=== PATIENT | female | born 1970 | race Caucasian/White ===

== ENCOUNTER → 2018-02-03 11:52 | Outpatient (REF) | payer MEDICAID, SELFPAY ==
[2018-02-07 01:01] LABS: EDDP-by GC-MS 1260 ng/mL; Methadone Interpretation Positive.; Methadone-by GC-MS 738 ng/mL
[2018-02-07 05:38] LABS: Amphetamine 561 ng/mL (Cutoff: 25); Amphetamines Interpretation Positive.; MDA (Ecstasy Metabolite) Negative ng/mL (Cutoff: 25); MDMA (Ecstasy) Negative ng/mL (Cutoff: 25); Methamphetamine Negative ng/mL (Cutoff: 25); Phentermine Negative ng/mL (Cutoff: 25); Pseudoephedrine/Ephedrine Negative ng/mL (Cutoff: 25)
[2018-02-08 01:07] LABS: Codeine Negative ng/mL (Cutoff: 25); Dihydrocodeine Negative ng/mL (Cutoff: 25); Hydrocodone Negative ng/mL (Cutoff: 25); Hydromorphone Negative ng/mL (Cutoff: 25); Morphine Negative ng/mL (Cutoff: 25); Naloxone Negative ng/mL (Cutoff: 25); Norhydrocodone Negative ng/mL (Cutoff: 25); Noroxycodone 226 ng/mL (Cutoff: 25); Noroxymorphone Negative ng/mL (Cutoff: 25); Opiates Interpretation Positive.
== END ==
LOC: NCHCN 11:52
PROVIDERS: PCP Family Medicine; Visit Provider Family Medicine
DX: G89.29 Other chronic pain (principal); Z51.81 Encounter for therapeutic drug level monitoring
CPT/HCPCS: 80324; 80361; 80358

== ENCOUNTER 2018-05-01 08:02 | Outpatient (RCR) | payer MEDICAID, SELFPAY ==
--- NOTE | 2018-05-01 08:03 | COCO.VHC ---
New/Renewal Application Status: New Application Submitted?: Yes Date Submitted:: 04/17/18 Notes:: Lula came in and we entered a application for her insurance.
== END 2018-05-29 23:59 | disposition home or self-care (01) ==
LOC: COCO 08:02
PROVIDERS: PCP Family Medicine; Visit Provider Family Medicine

== ENCOUNTER 2018-09-07 09:01 | Outpatient (CLI) | payer MEDICAID, SELFPAY ==
[2018-09-07 10:25] LABS: ALT 19 U/L (12-78); AST 15 U/L (15-37); Albumin 3.9 g/dL (3.4-5.0); Alkaline Phosphatase 81 U/L (46-116); Anion Gap 9.7 mmol/L (3-11); BUN 12 mg/dL (7-18); Bilirubin, Total 0.5 mg/dL (0.2-1.0); CO2 27.3 mmol/L (21.0-32.0); CREATININE 0.92 mg/dL (0.55-1.02); Chloride 103 mmol/L (98-107); Cholesterol 209 mg/dL (50-200); Glucose 96 mg/dL (70-100); HDL Cholesterol 61 mg/dL (40-60); LDL CHOLESTEROL 133 mg/dL (<100); Sodium 140 mmol/L (136-145); Total Protein 7.6 g/dL (6.4-8.2); Triglyceride 72 mg/dL (30-150)
[2018-09-07 10:45] LABS: TSH (W/Ref FT4) 25.91 uIU/mL (0.358-3.74)
[2018-09-07 10:51] LABS: Calcium 9.1 mg/dL (8.5-10.1)
[2018-09-07 12:03] LABS: FREE T4 0.69 ng/dL (0.76-1.46)
== END 2018-09-07 09:21 ==
PROVIDERS: PCP Family Medicine; Visit Provider Family Medicine
DX: Z13.220 Encounter for screening for lipoid disorders (principal); R79.89 Other specified abnormal findings of blood chemistry; Z13.228 Encounter for screening for other metabolic disorders
CPT/HCPCS: 36415; 80053; 80061; 83721; 84439; 84443

== ENCOUNTER 2018-11-12 14:24 | Outpatient (REF) | payer MEDICAID, SELFPAY ==
[2018-11-12 19:16] LABS: Anion Gap 12.6 mmol/L (3-11); BUN 13 mg/dL (7-18); CO2 22.4 mmol/L (21.0-32.0); CREATININE 0.81 mg/dL (0.55-1.02); Calcium 9.4 mg/dL (8.5-10.1); Chloride 104 mmol/L (98-107); Glucose 96 mg/dL (70-100); Potassium 4.1 mmol/L (3.5-5.1); Sodium 139 mmol/L (136-145); TSH (W/Ref FT4) 0.29 uIU/mL (0.358-3.74)
[2018-11-12 19:33] LABS: FREE T4 1.72 ng/dL (0.76-1.46)
== END 2018-11-12 14:44 ==
LOC: LBN 14:24
PROVIDERS: PCP Family Medicine; Visit Provider Family Medicine
DX: E03.9 Hypothyroidism, unspecified (principal)
CPT/HCPCS: 80048; 84439; 84443

== ENCOUNTER 2018-11-29 02:36 | Emergency (ER) | payer MEDICAID, SELFPAY ==
[2018-11-29 02:46] VITALS: BP 132/81; PULSE 114; RESP 18; TEMP 36.2; O2SAT 100
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
[2018-11-29] MEDS: Acetaminophen 500 MG TAB 1000 MG PO (02:59)
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
== END 2018-11-29 03:10 | disposition home or self-care (01) ==
PROVIDERS: Emergency Provider Emergency Medicine; PCP Family Medicine
DX: S40.011A Contusion of right shoulder, initial encounter (principal); S80.01XA Contusion of right knee, initial encounter; Y04.0XXA Assault by unarmed brawl or fight, initial encounter
CPT/HCPCS: 99282

== ENCOUNTER 2019-08-10 11:59 | Outpatient (REF) | payer MEDICAID, SELFPAY ==
[2019-08-10 19:12] LABS: C-Reactive Protein 0.52 mg/dL (0.0-0.3); TSH (W/Ref FT4) 0.08 uIU/mL (0.36-3.74)
[2019-08-10 19:29] LABS: FREE T4 1.64 ng/dL (0.76-1.46)
[2019-08-12 09:10] LABS: Cyclic Citrullinated Peptide <2.5 U/mL (<5.0)
[2019-08-12 14:11] LABS: Rheumatoid Factor <8.6 IU/mL (<12.0)
== END 2019-08-10 12:19 ==
LOC: LBN 11:59
PROVIDERS: PCP Family Medicine; Visit Provider Family Medicine
DX: E03.9 Hypothyroidism, unspecified (principal); M13.0 Polyarthritis, unspecified
CPT/HCPCS: 86200; 84439; 84443; 86140; 86431

== ENCOUNTER 2019-11-05 09:11 | Outpatient (CLI) | payer MEDICAID, SELFPAY ==
[2019-11-08 15:10] LABS: COVID-19 RT-PCR UVMMC Result Negative (Negative)
== END 2019-11-05 09:31 ==
PROVIDERS: PCP Family Medicine; Visit Provider Family Medicine
DX: J06.9 Acute upper respiratory infection, unspecified (principal)
CPT/HCPCS: U0003

== ENCOUNTER 2020-02-28 11:47 | Outpatient (REF) | payer MEDICAID, SELFPAY ==
[2020-02-28 20:57] LABS: FREE T4 1.43 ng/dL (0.76-1.46)
== END 2020-02-28 12:07 ==
LOC: LBN 11:47
PROVIDERS: PCP Family Medicine; Visit Provider Family Medicine
DX: R94.6 Abnormal results of thyroid function studies (principal)
CPT/HCPCS: 84439; 84443

== ENCOUNTER 2020-04-18 01:19 | Outpatient (CLI) | payer MEDICAID, SELFPAY ==
[2020-04-18 08:47] LABS: Calculated LDL 119 mg/dL (<100); Cholesterol 201 mg/dL (<200); HDL Cholesterol 36 mg/dL (40-60); Triglyceride 231 mg/dL (<150)
[2020-04-18 17:20] LABS: Rheumatoid Factor <8.6 IU/mL (<12.0)
[2020-04-19 09:18] LABS: Cyclic Citrullinated Peptide <2.5 U/mL (<5.0)
[2020-04-19 10:23] LABS: Lyme Ab w Rflx to Lyme Confirm Negative (Negative)
[2020-04-19 15:35] LABS: ANA Interpretation Negative (Negative)
[2020-04-21 03:50] LABS: Anaplasma phagocytophilum Negative (Negative); B. miyamotoi PCR Negative (Negative); Babesia divergens/MO-1 Negative (Negative); Babesia duncani Negative (Negative); Babesia microti Negative (Negative); Ehrlichia chaffeensis Negative (Negative); Ehrlichia ewingii/canis Negative (Negative); Ehrlichia muris eauclairensis Negative (Negative)
== END 2020-04-18 01:39 ==
PROVIDERS: PCP Family Medicine; Visit Provider Family Medicine
DX: M06.9 Rheumatoid arthritis, unspecified (principal); R53.83 Other fatigue; G47.19 Other hypersomnia
CPT/HCPCS: 36415; 80061; 86200; 87798; 86038; 86431; 86618

== ENCOUNTER 2020-06-06 03:39 | Outpatient (CLI) | payer MEDICAID, SELFPAY ==
[2020-06-09 18:53] LABS: COVID-19 RT-PCR Result NEGATIVE (Negative)
== END 2020-06-06 03:59 ==
PROVIDERS: PCP Family Medicine; Visit Provider Family Medicine
DX: Z11.59 Encounter for screening for other viral diseases (principal)
CPT/HCPCS: U0003

== ENCOUNTER 2020-08-08 00:51 | Outpatient (CLI) | payer MEDICAID, SELFPAY ==
--- NOTE | 2020-08-08 14:08 | DI.US_ITS ---
APPROVED REPORT EXAM: Comprehensive 2D, Doppler, and color-flow Echocardiogram Patient Location: [facility]: Vanesa Merritt RDCS (AE) Indications: Central sleep apnea, Evaluate EF prior to starting ASV Other Information Study Quality: Adequate Conclusion Left Ventricle : The left ventricle is normal size. The left ventricular systolic function is normal. The left ventricular ejection fraction is within the normal range. There is normal left ventricular wall thickness. There is normal LV segmental wall motion. The left ventricular diastolic function is normal. LVEF is 60-65%. Right Ventricle : The right ventricle is normal size. The right ventricular systolic function is norm al. The RVSP is 25.0mmHg. Atria : The left atrium size is normal. The right atrium size is normal. Valves: There are no hemodynamically significant valvular lesions. Great Vessels : The aortic root is normal in size. The ascending aorta is normal in size. Aortic arch is normal in caliber. IVC is normal in size and collapses >50% with inspiration. Wall motion Left Ventricle The left ventricle is normal size. The left ventricular systolic function is normal. The left ventric ular ejection fraction is within the normal range. There is normal left ventricular wall thickness. T here is normal LV segmental wall motion. The left ventricular diastolic function is normal. There is no ventricular septal defect visualized. LVEF is 60-65%. Right Ventricle The right ventricle is normal size. The right ventricular systolic function is normal. The RVSP is 25 .0mmHg. Atria The left atrium size is normal. The right atrium size is normal. The interatrial septum is intact wit h no evidence for an atrial septal defect. Aortic Valve The aortic valve is normal in structure. Aortic valve is trileaflet. There is no aortic valvular sten osis. No aortic regurgitation is present. Mitral Valve The mitral valve is normal in structure. No evidence of mitral valve stenosis. Trace mitral regurgita tion. Tricuspid Valve The tricuspid valve is normal in structure. There is no tricuspid valve stenosis. Trace to mild tricu spid regurgitation. Pulmonic Valve The pulmonary valve is normal in structure. There is no pulmonic valvular stenosis. There is no pulmo liz valvular regurgitation. Great Vessels The aortic root is normal in size. The ascending aorta is normal in size. Aortic arch is normal in ca liber. IVC is normal in size and collapses >50% with inspiration. Pericardium There is no pericardial effusion. 2D Dimensions IVSD d PLAX 0.78 cm F: 0.6-1.0 LV Vol A2C d MOD 103.7 mL LVPW d PLAX 0.80 cm F: 0.6 - 1.0 LV Vol A4C d MOD 87.1 mL LVID d PLAX 4.01 cm F: 3.8 - 5.2 LA vol/ BSA A2C s A-L 18.4 mL/m2 LVDs 2.65 cm F: 2.2 - 3.5 LA vol/ BSA A4C s A-L 21.6 mL/m2 Ao Root d 3.04 cm F: 2.7 - 3.3 LA Vol/ BSA Biplane s A-L 21.1 mL/m2 RA Area A4C 11.77 cm2 LA Area A4C s MOD 15.38 cm2 RA Vol/ BSA A4C s A-L 13.8 mL/m2 LA Area A2C s MOD 13.37 cm2 Ao Asc Diam d 3.06 cm F: 2.3 - 3.1 LV EF A4C MOD 65.9 % LV EF Teichholz 62.5 % LV EF A2C MOD 60.6 % LVEF (Buckley's) 62.74 % F: 54 - 74 LV EF Biplane MOD 62.7 % LV Volume 73.71 mL F: 46 - 106 SV 60.48 mL LV Volume Index 39.00 mL/m2 F: 29 - 61 SV Index 32.01 mL/m2 LV Vol Biplane MOD 96.4 mL FS 33.25 % M-Mode TAPSE 3.26 cm (M/F) >1.7 LV Diastology MV E' medial 0.122 (>0.07 m/s) E/A Ratio 1.3 LV E/e MED 7.75 (<14) MV E Vmax 0.95 (0.4-1.3 m/s) MV E' lateral 0.133 (>0.1 m/s) MV A Vmax 0.75 (0.4-1.3 m/s) LV E/e LAT 7.10 (<14) MV E/A Ratio 1.23 MV E/E' medial 7.76 MV E/E' lateral 7.12 Aortic Valve LVOT Area 3.32 cm2 AoV Area Vmax 2.79 cm2 LVOT Vmax 1.17 m/s AoV Area/ BSA (Vmax) 1.47 cm2/m2 LVOT Mean Kamron. 0.72 m/s TAJ Mean Kamron. 2.65 cm2 LVOT Peak Grad 5.5 mmHg TAJ Mean Kamron. Index 1.40 cm2/m2 LVOT Mean Grad 2.5 mmHg LVOT VTI 0.278 m LVOT Diam s 2.05 cm AoV Vmax 1.39 m/s Velocity Ratio 0.84 AoV Mean Kamron. 0.90 m/s AoV Peak Grad 7.8 mmHg LVOT SV 92.36 mL AoV Mean Grad 3.7 mmHg AoV VTI 0.308 m AoV Area VTI 3.00 cm2 AoV Area/ BSA (VTI) 1.58 cm/m2 Mitral Valve MV DT 160 (160-240 msec) MV PHT 46 msec MV Area PHT 4.73 cm2 MV VTI 0.240 m MV Area VTI 3.84 (4.0-6.0 cm2) Pulmonary Valve PV Vmax 0.95 (0.5-1.5 m/s) RVOT Peak Gr. 3.02 mmHg PV Peak Grad 3.6 mmHg RVOT Mean Gr. 1.40 mmHg PV Mean Grad 1.7 mmHg RVOT VTI 0.210 m PV VTI 0.212 m RVOT Vmax 0.87 m/s Tricuspid Valve TR Peak Grad 22.0 mmHg TR Vmax 2.35 m/s RA Pressure 3.00 mmHg RVSP (TR) 25.0 mmHg
== END 2020-08-08 00:52 ==
LOC: DI 00:51
PROVIDERS: PCP Family Medicine; Visit Provider Nurse Practitioner
DX: G47.31 Primary central sleep apnea (principal)
CPT/HCPCS: 93306

== ENCOUNTER 2020-09-19 03:10 | Outpatient (CLI) | payer MEDICAID, SELFPAY ==
[2020-09-19 10:35] LABS: Source Nasal/Nares
[2020-09-19 14:54] LABS: COVID-19 PCR Negative (Negative)
== END 2020-09-19 03:11 | disposition home or self-care (01) ==
LOC: LBO 03:10
PROVIDERS: PCP Family Medicine; Visit Provider Nurse Practitioner
DX: Z20.822 Contact with and (suspected) exposure to COVID-19 (principal); Z01.818 Encounter for other preprocedural examination
CPT/HCPCS: 87635

== ENCOUNTER 2020-09-25 03:32 | Outpatient (CLI) | payer MEDICAID, SELFPAY ==
[2020-09-25 10:48] LABS: Source Nasal/Nares
[2020-09-25 13:59] LABS: COVID-19 PCR Negative (Negative)
== END 2020-09-25 03:33 | disposition home or self-care (01) ==
LOC: LBO 03:32
PROVIDERS: PCP Family Medicine; Visit Provider Surgery
DX: Z20.822 Contact with and (suspected) exposure to COVID-19 (principal); Z01.818 Encounter for other preprocedural examination
CPT/HCPCS: 87635

== ENCOUNTER 2020-11-30 14:31 | Outpatient (CLI) | payer MEDICAID, SELFPAY ==
--- NOTE | 2020-11-30 14:30 | RT.EKG_ITS ---
APPROVED REPORT Exam: Resting ECG Reason for Exam: chest pressure Patient Location: O HR:107 bpm ECG Measurements Heart Rate 107 AXIS PA 159 P 87 QRSd 120 QRS 101 QT 366 T 28 QTc 489 Conclusion Sinus tachycardia...rate> 99 Right atrial enlargement...P>0.25mV 2 lds or<-0.24mV aVR/aVL RBBB and LPFB...QRSd >120mS, axis(90,210)
== END 2020-11-30 14:32 | disposition home or self-care (01) ==
LOC: DI.KIM 14:32
PROVIDERS: PCP Family Medicine; Visit Provider Family Medicine
DX: R07.89 Other chest pain (principal); R00.0 Tachycardia, unspecified; I51.7 Cardiomegaly; I45.19 Other right bundle-branch block; I44.5 Left posterior fascicular block
CPT/HCPCS: 93010

== ENCOUNTER 2024-03-11 09:33 | Emergency (ER) | payer MEDICAID, SELFPAY ==
[2024-03-11 09:41] VITALS: BP 122/80; PULSE 90; RESP 14; TEMP 36.4; O2SAT 95
--- NOTE | 2024-03-11 09:53 | ED.GENADUL_ITS ---
Discharge Plan Disposition Patient Disposition: Home Condition: Stable Discharge Details Clinical Impression: Acute exacerbation of chronic bronchitis Primary Care Provider: Joaquin Mcmillan ED Provider: Abhijit Parrish Home Meds and New Rx's Prescriptions: New azithromycin 250 mg tablet See Rx Instructions .ROUTE .COMPLEX Qty: 6 0RF Rx Instructions: For 250 mg dose pack: take 500 mg today (day 1), then 250 mg for 4 days (days 2-5) prednisone 20 mg tablet 40 mg PO DAILY 5 Days Qty: 10 0RF No Action levothyroxine 125 mcg tablet 125 mcg PO DAILY Qty: 90 3RF sumatriptan succinate [Imitrex] 100 mg tablet 100 mg PO ONCE PRN (Reason: headache) Qty: 9 12RF albuterol sulfate 90 mcg/actuation HFA aerosol inhaler 2 puff inhalation Q6H PRN (Reason: shortness of breath or wheezing) Qty: 8.5 6RF diclofenac sodium 75 mg tablet,delayed release (DR/EC) 75 mg PO BID Qty: 180 3RF paroxetine HCl 40 mg tablet 40 mg PO DAILY Qty: 90 3RF promethazine 12.5 mg tablet 12.5 mg PO TID PRN (Reason: nausea and vomiting) Qty: 90 3RF methylphenidate HCl [Ritalin] 10 mg tablet 10 mg PO BID MDD 10 mg Qty: 56 0RF Discharge Instructions Instructions: Azithromycin (Systemic), Prednisone, Bronchitis, Adult ED Additional Instructions: You were seen in the emergency department for your likely bronchitis, I have sent you prescription for azithromycin as well as prednisone burst to help with inflammation in your lungs, please use your at home albuterol, please return for any worsening respiratory status or intractable nausea vomiting. Referrals: Joaquin Mcmillan DO [Primary Care Provider] - Discharge Data Discharge Date/Time-TO BE ENTERED AT DEPARTURE: 03/11/24 11:36 HPI General Date/Time Provider Initiated Documentation: 03/11/24 09:53 . HPI Narrative: 53 year-old female presents to ED today by POV/ambulating with a chief complaint of non-resolving productive cough with yellow phlegm, history of tobacco use, body aches with onset two weeks ago. Quality described as generalized cold symptoms, no radiation to severe respiratory distress, shortness of breath, chest pain, hemoptysis, vomiting, decrease urine output, abdominal pain, high fevers. Severity is described as moderate. Palliating factors include nothing specific attempted- has intermittent inhaler use at home. Provoking factors include nothing specific. Patient not anticoagulated. Related Data Home Medications ?Medication ?Instructions ?Recorded ?Confirmed levothyroxine 125 mcg tablet 125 mcg PO DAILY #90 tabs 01/10/24 03/11/24 sumatriptan succinate 100 mg 100 mg PO ONCE PRN headache #9 tabs 01/10/2406/22 tablet (Imitrex) albuterol sulfate 90 mcg/actuation 2 puff inhalation Q6H PRN 02/16/24 03/11/24 aerosol inhaler shortness of breath or wheezing #8.5 grams diclofenac sodium 75 mg 75 mg PO BID #180 tabs 02/16/24 03/11/24 tablet,delayed release methylphenidate HCl 10 mg tablet 10 mg PO BID #56 tabs 02/16/24 03/11/24 (Ritalin) paroxetine HCl 40 mg tablet 40 mg PO DAILY #90 tabs 02/16/24 03/11/24 promethazine 12.5 mg tablet 12.5 mg PO TID PRN nausea and 02/16/24 03/11/24 vomiting #90 tabs azithromycin 250 mg tablet See Rx Instructions PO .COMPLEX #6 03/11/24 tabs prednisone 20 mg tablet 40 mg (2 x 20 mg) PO DAILY 5 days 03/11/24 #10 tabs Previous Rx's ?Medication ?Instructions ?Recorded levothyroxine 125 mcg tablet 125 mcg PO DAILY #90 tabs 01/10/24 sumatriptan succinate 100 mg 100 mg PO ONCE PRN headache #9 tabs 01/10/24 tablet (Imitrex) albuterol sulfate 90 mcg/actuation 2 puff inhalation Q6H PRN 02/16/24 aerosol inhaler shortness of breath or wheezing #8.5 grams diclofenac sodium 75 mg 75 mg PO BID #180 tabs 02/16/24 tablet,delayed release methylphenidate HCl 10 mg tablet 10 mg PO BID #56 tabs 02/16/24 (Ritalin) paroxetine HCl 40 mg tablet 40 mg PO DAILY #90 tabs 02/16/24 promethazine 12.5 mg tablet 12.5 mg PO TID PRN nausea and 02/16/24 vomiting #90 tabs azithromycin 250 mg tablet See Rx Instructions PO .COMPLEX #6 03/11/24 tabs prednisone 20 mg tablet 40 mg (2 x 20 mg) PO DAILY 5 days 03/11/24 #10 tabs Allergies Allergy/AdvReac Type Severity Reaction Status Date / Time shellfish derived Allergy Severe throat Verified 03/11/24 09:46 swelling tetracycline Allergy Severe unknown Verified 03/11/24 09:46 cortisone Allergy Intermediate unknown Verified 03/11/24 09:46 Sulfa (Sulfonamide Allergy Intermediate rash Verified 03/11/24 09:46 Antibiotics) meperidine HCl (From Demerol) Allergy Unknown unknown Verified 03/11/24 09:46 Penicillins Allergy Unknown throat Verified 03/11/24 09:46 swelling bupropion (From Wellbutrin) AdvReac Severe black-out Verified 03/11/24 09:46 - memory loss [facility] 91-DAY AdvReac Intermediate nausea, Uncoded 03/11/24 09:46 vomiting, dysmenorrhea General Stated Complaint: [facility] SIDNEY: 4 Review of Systems All systems reviewed & are unremarkable except as noted in HPI and below Exam Narrative Exam Narrative: GENERAL APPEARANCE: Well-nourished, non-toxic, awake and alert, atraumatic, no acute distress. SKIN: Warm, pink, dry, intact, without rashes/lesions/ulcerations. HEAD: Normocephalic, atraumatic, normal hair distribution for gender/age. EYES: Normal conjunctiva, no exudates on lids/lashes. ENT: Nares patent, no circumoral cyanosis, no facial swelling NECK: Supple, trachea midline, painless cervical ROM. LUNGS/CHEST: Lungs - mild wheezes without focally diminished or absent lung sounds, no rales at bases, non-labored respirations, normal A/P diameter, symmetrical expansion, no chest wall deformity HEART (CV/PV): Regular rate and rhythm without murmur, no peripheral edema, no JVD. ABDOMEN: Soft, non-distended, no guarding. MSK: Normal ROM, no swelling/deformity to bilateral UEs or LEs, moving all extremities without weakness, no cyanosis, spine midline without tenderness, normal curvature. NEURO: Mental Status AAOx4 - alert to person, place, time, events No facial droop, no forehead involvement. Motor: No focal weakness - strength 5/5 in bilateral UEs and LEs, proximal and distal, symmetric. Sensory: sensation intact to light touch globally. Gait normal: patient ambulated without ataxia into ED room. PSYCH: euthymic, cooperative, pleasant, appropriate speech Course Vital Signs Vital signs: Vital Signs Temperature 36.4 C 03/11/24 09:41 Pulse 90 03/11/24 09:41 Respiratory Rate 14 03/11/24 09:41 Blood Pressure 122/80 03/11/24 09:41 Pulse Oximetry 95 03/11/24 09:41 Temperature 36.4 C 03/11/24 09:41 Temperature Source Oral 03/11/24 09:41 Pulse 90 03/11/24 09:41 Respiratory Rate 14 03/11/24 09:41 Respiratory Effort Normal 03/11/24 09:48 Blood Pressure 122/80 03/11/24 09:41 Pulse Oximetry 95 03/11/24 09:41 Pain Level 0 03/11/24 09:41 Medical Decision Making This dictation utilizes [id number] dictation software and may contain unedited grammatical errors. 53 year-old female presents to ED today by POV/ambulating with a chief complaint of non-resolving productive cough with yellow phlegm, history of tobacco use, body aches with onset two weeks ago. Quality described as generalized cold symptoms, no radiation to severe respiratory distress, shortness of breath, chest pain, hemoptysis, vomiting, decrease urine output, abdominal pain, high fevers. Severity is described as moderate. Palliating factors include nothing specific attempted- has intermittent inhaler use at home. Provoking factors include nothing specific. Patients' medical history: reactive airway disease. Family and social history: current tobacco user, denies illicit drug use, no sick contacts/recent travel. Pertinent exam findings / vital signs include mild wheezes diffusely, benign abdomen, non-hypoxic. Differential / pathologies of concern include pneumonia, URI, not hypoxic respiratory failure, COPD exacerbation. Diagnostic studies of: -Covid/Flu/RSV PCR, CXR. -negative fluvid swab, XR shows no focal pneumonia Interventions of: -DuoNeb given, Rx for Azithromycin and prednisone. ED Course/Assessment/Plan: 53-year-old female presents with 2-week onset of a respiratory infection with productive yellow cough, likely has an element of undiagnosed COPD in the setting of long-term tobacco use and reactive airway disease, patient was mildly wheezy and went received a DuoNeb treatment here, x-ray shows no focal pneumonia I am treating for acute exacerbation of chronic bronchitis with azithromycin and burst of prednisone, strict return criteria for any worsening despite treatment especially with worsening shortness of breath, fevers, nausea and weakness. Findings not consistent with hypoxic respiratory failure, focal pneumonia, sepsis, respiratory distress. Disposition of acute exacerbation of chronic bronchitis. Patient verbalized understanding of the plan and return to ED criteria and engaged in shared decision making. Medical Records Medical records reviewed: Yes I reviewed the patient's medical records. Imaging Data Radiologic Study: Attestation: I personally reviewed and interpreted this imaging study as follows: Imaging: X-Ray Radiologist's impression: EXAM: XR CHEST 2V PA LATERAL CLINICAL HISTORY: cough TECHNIQUE: 2D digital imaging was performed. Two views. COMPARISON: CR CHEST 2 VIEWS PA,LAT from 03/17/2008 CT CHEST WITH CONTRAST from 03/24/2008 CR ABD FLAT UPRIGHT PA CHEST from 04/10/2008 FINDINGS: HEART: Normal size. Aorta: Not dilated. PULMONARY VASCULATURE: Normal. MEDIASTINUM: Unremarkable. LUNGS: Bilateral upper lobe scarring, right greater than left. This was demonstrated on the 2007 CT. PLEURAL SPACE: No pleural effusion or pneumothorax. BONE:Unremarkable for age. SOFT TISSUES: Unremarkable. IMPRESSION: No acute abnormality. Lab Data Lab results reviewed: Yes I reviewed the patient's lab results. Labs: Laboratory Tests Range/Units 03/11/24 09:52 COVID-19 Source Nasopharynx SARS-CoV-2 (PCR) (Negative) Negative Influenza Type A (PCR) (Negative) Negative Influenza Type B (PCR) (Negative) Negative RSV (PCR) (Negative) Negative Quality:SDOH Health Related Social Needs: No Data to Display PFSH All Active Problems Acute exacerbation of chronic bronchitis (Acute) Generalized anxiety disorder (Acute) Pedal edema (Acute) Likely due to prazosin Bilateral hip pain (Acute) Reactive airway disease (Acute) Central sleep apnea (Chronic 07/20/20) 07/14/20 Yoana severe CPAP Excessive daytime sleepiness (Acute) Chronic headaches (Chronic) PTSD (post-traumatic stress disorder) (Chronic) Depression (Chronic) ADHD (attention deficit hyperactivity disorder), inattentive type (Chronic) Abnormal uterine bleeding (Acute 05/02/17) Long-standing heavy flow sometimes lasting 2 weeks. Agoraphobia with panic attacks (Acute) Elevated TSH (Acute 10/23/17) 03/2017 = 8.68. Intramural leiomyoma of uterus (Acute 05/02/17) Other chronic pain (Acute) Tobacco use (Acute 05/02/17) Medical History Frequent UTI Migraine Uterine fibroid Surgical History History of surgery removal 3 ovarian cysts Ligation of fallopian tube section Endometrial Ablation (05/28/17) HTA ablation. 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
[2024-03-11 10:19] VITALS: BP 124/89; PULSE 88; RESP 20; TEMP 36.1; O2SAT 97
--- NOTE | 2024-03-11 10:30 | DI.RAD_ITS ---
Exam(s) XR CHEST 2V PA LATERAL EXAM: XR CHEST 2V PA LATERAL CLINICAL HISTORY: cough TECHNIQUE: 2D digital imaging was performed. Two views. COMPARISON: CR CHEST 2 VIEWS PA,LAT from 03/17/2008 CT CHEST WITH CONTRAST from 03/24/2008 CR ABD FLAT UPRIGHT PA CHEST from 04/10/2008 FINDINGS: HEART: Normal size. Aorta: Not dilated. PULMONARY VASCULATURE: Normal. MEDIASTINUM: Unremarkable. LUNGS: Bilateral upper lobe scarring, right greater than left. This was demonstrated on the 2007 CT. PLEURAL SPACE: No pleural effusion or pneumothorax. BONE:Unremarkable for age. SOFT TISSUES: Unremarkable. IMPRESSION: No acute abnormality. DATA REPOSITORY: RADIATION DOSE DELIVERED:
[2024-03-11 10:58] VITALS: RESP 20; O2SAT 97
[2024-03-11] MEDS: Albuterol/Ipratropium 3 ML UPD VIAL UPD (10:58)
[2024-03-11 11:21] LABS: COVID-19 PCR Negative (Negative); Influenza A PCR Negative (Negative); Influenza B PCR Negative (Negative); RSV PCR Negative (Negative)
[2024-03-11 11:22] LABS: Source Nasopharynx
== END 2024-03-11 11:36 | disposition home or self-care (01) ==
PROVIDERS: Emergency Provider Physician Assistant; PCP Family Medicine
DX: J20.9 Acute bronchitis, unspecified (principal); R05.1 Acute cough; R52 Pain, unspecified
CPT/HCPCS: 87637; 94640; 99283; 71046; 99284; J7620